=== PATIENT | female | born 1965 | race African-American/Black ===

== ENCOUNTER 2017-01-26 07:23 | Day surgery (SDC) | payer OTHER ==
[2017-01-23 13:04] VITALS: BMI 49.9
[2017-01-26] MEDS ORDERED: PROPOFOL 20 ML ONE ×3 (07:27)
[2017-01-26] MEDS ORDERED: LIDOCAINE HCL/PF 2% SDV 5ML VIAL ONE (08:06)
[2017-01-26 09:11] VITALS: TEMP 97.9
[2017-01-26 09:44] VITALS: BP 118/77; PULSE 87
--- NOTE | 2017-01-27 16:49 | PATH ---
Surgical Pathology Report Patient Name: FALLON NEVAREZ V. [facility]. Rec. #: [id number] /Age/Gender: 1965 (Age: 51) / F Account: [id number] Location: [facility]-ENDOSCOPY Taken: 01/26/2017 Received: 01/26/2017 Reported: 01/27/2017 Physicians: Odell Monae M.D. Specimen(s) Received A: BX SIGMOID B: BX DISTAL SIGMOID Clinical History Preoperative diagnosis: Rule out colon cancer Postoperative diagnosis: Polyp Final Diagnosis A. SIGMOID COLON, BIOPSY: TUBULOVILLOUS ADENOMA. B. DISTAL SIGMOID COLON, BIOPSY: TUBULAR ADENOMA. Electronically Signed Lexis Rios M.D. Gross Description A. Received in formalin labeled "sigmoid," is a 1.1 x 0.6 x 0.3 cm hernandez, polypoid portion of soft tissue. The base is inked green and the specimen is submitted in toto in one cassette. B. Received in formalin, labeled "distal sigmoid" is a hernandez, irregular portion of soft tissue measuring 0.3 cm. in greatest dimension. The specimen is submitted in toto in one cassette. 01/26/201701/26/2017
== END 2017-01-26 09:35 | disposition home or self-care (01) ==
LOC: FASU-ENDO 07:23
PROVIDERS: ATTEND Internal Medicine Gastroenterology
PROC: 0DBN8ZX Excision of Sigmoid Colon, Via Natural or Artificial Opening Endoscopic, Diagnostic (ICD-10-PCS; principal; 2017-01-26 08:45)
DX: Z12.11 Encounter for screening for malignant neoplasm of colon (principal); Z80.0 Family history of malignant neoplasm of digestive organs; Z83.71 Family history of colonic polyps
CPT/HCPCS: 88305-TC

== ENCOUNTER 2021-09-27 06:56 | Day surgery (SDC) | payer OTHER ==
[2021-09-22 10:11] VITALS: BMI 44.9
[2021-09-27] MEDS ORDERED: PROPOFOL 120 ML ONE (07:01)
[2021-09-27] MEDS ORDERED: LIDOCAINE HCL/PF 2% SDV 5ML VIAL ONE (07:01)
[2021-09-27 08:46] VITALS: TEMP 97
[2021-09-27 09:15] VITALS: PULSE 90; RESP 17
[2021-09-27 09:20] VITALS: BP 110/60
== END 2021-09-27 09:10 | disposition home or self-care (01) ==
LOC: FASU-ENDO 06:56
PROVIDERS: ATTEND Internal Medicine Gastroenterology
PROC: 0DJD8ZZ Inspection of Lower Intestinal Tract, Via Natural or Artificial Opening Endoscopic (ICD-10-PCS; principal; 2021-09-27 08:16)
DX: Z12.11 Encounter for screening for malignant neoplasm of colon (principal); Z86.010 Personal history of colon polyps
CPT/HCPCS: 82962